=== PATIENT | male | born 1975 | race Caucasian/White ===

== ENCOUNTER 2025-09-10 17:11 | Emergency (ER) | payer BC, SELFPAY ==
--- NOTE | ~2025-09-10 | XR_ITS ---
EXAMINATION: XR hand RT min 3V, 09/10/2025 17:35 [facility] HISTORY: R hand laceration ATTN: 5TH DIGIT COMPARISON: No comparisons available. Findings: Evaluation is limited but there is a nondisplaced fracture suspected of the distal aspect intermediate phalanx fifth digit. No significant degenerative changes. Soft tissues unremarkable. Impression: Fifth Digit fracture Reviewed, dictated and finalized at location [facility] Impression: Fifth Digit fracture
--- NOTE | 2025-09-10 17:19 | ED_ITS ---
HPI - Wound/Laceration General Chief Complaint: Wound/Laceration <Talisha Meléndez APRN - Last Filed: 09/10/25 17:22> Stated Complaint: right hand lac today <Talisha eMléndez APRN - Last Filed: 09/10/25 17:22> Time Seen by Provider: 09/10/25 17:19 <Talisha Meléndez APRN - Last Filed: 09/10/25 17:22> Focused HPI: Patient is a 49-year-old male presents to to the ER after sustaining a laceration to his right hand. Reports he was hanging drywall when he grabbed a piece of sheet metal, it fell, and sliced his 3rd digit, 4th digit and 5th digit. He is unsure when he was last vaccinated for tetanus. Patient endorses a history of GERD but denies any other pertinent medical history. Patient's significant other reports patient has been drinking a fair amount of alcohol today. He denies any numbness and tingling, decreased range of motion, or uncontrolled bleeding. GENERAL: Well-appearing, well-nourished, and in no acute distress. HEAD: Normocephalic, atraumatic. CHEST: Clear to auscultation. ?No respiratory distress. HEART: Regular rate and rhythm.? NEURO: ?Alert and oriented x3. Patient screened in triage and initial orders placed.? ?Additional care and disposition to be based upon?diagnostic testing and treatment. <Talisha Meléndez APRN - Last Filed: 09/10/25 17:22> Focused HPI: Patient is a 49-year-old male presents to to the ER after sustaining a laceration to his right hand. Reports he was hanging drywall when he grabbed a piece of sheet metal, and fell, and sliced his 3rd digit, 4th digit and 5th digit. He is unsure when he was last vaccinated for tetanus. Patient endorses a history of GERD but denies any other pertinent medical history. Patient's significant other reports patient has been drinking a fair amount of alcohol today. He denies any numbness and tingling, decreased range of motion, or uncontrolled bleeding. Patient reports he had fallen about 15 feet from the ladder and landed on his back. He did not lose consciousness. GENERAL: Well-appearing, well-nourished, and in no acute distress. HEAD: Normocephalic, atraumatic. CHEST: Clear to auscultation. ?No respiratory distress. HEART: Regular rate and rhythm.? NEURO: ?Alert and oriented x3. Patient screened in triage and initial orders placed.? ?Additional care and disposition to be based upon?diagnostic testing and treatment. <Caitlin Roberson PA-C - Last Filed: 09/10/25 21:09> Related Data Allergies/Adverse Reactions: Allergies Allergy/AdvReac Type Severity Reaction Status Date / Time No Known Allergies Allergy Verified 09/10/25 17:12 <Talisha Meléndez APRN - Last Filed: 09/10/25 17:22> Review of Systems Review of Systems: All systems reviewed & are unremarkable except as noted in HPI and below <Caitlin Roberson PA-C - Last Filed: 09/10/25 21:09> PMFSH Past Medical History Medical History: Medical History (Updated 09/10/25 @ 21:08 by Caitlin Roberson PA-C) GERD (gastroesophageal reflux disease) <Talisha Meléndez, PHARMACEUTICAL OPERATOR - Last Filed: 09/10/25 17:22> Exam Narrative: GENERAL: Well-appearing, well-nourished, and in no acute distress. HEAD: Normocephalic, atraumatic. EYES: PERRLA and EOMI. ENT: Nares clear, no rhinorrhea or epistaxis. Mucous membranes moist. Oropharynx without tonsillar hypertrophy exudate or other lesions. Bilateral TMs pearly alegria non-bulging NECK: Supple. No adenopathy or masses. CHEST: Clear to auscultation. No respiratory distress. No wheezes rales or rhonchi HEART: Regular rate and rhythm. No murmur heard. Normal peripheral pulses. ABDOMEN: Soft, nontender, nondistended, normal active bowel sounds. EXTREMITIES: Normal range of motion, except decreased ROM in the right 4th and 5th fingers. No edema. SKIN: Warm, dry, no rash. NEURO: No focal deficits. Alert and oriented x3. CN II-XII grossly intact. Normal gait PSYCH: Normal mood and affect <Caitlin Roberson PA-C - Last Filed: 09/10/25 21:09> Course Vital Signs Vital signs: Vital Signs Temperature 97.6 F 09/10/25 17:29 Pulse Rate 90 09/10/25 17:29 Respiratory Rate 18 09/10/25 17:29 Blood Pressure 123/78 09/10/25 17:29 Pulse Oximetry 100 09/10/25 17:29 Oxygen Delivery Room Air 09/10/25 17:29 Temperature 97.6 F 09/10/25 17:29 Pulse Rate 90 09/10/25 17:29 Respiratory Rate 18 09/10/25 17:29 Blood Pressure 123/78 09/10/25 17:29 Pulse Oximetry 100 09/10/25 17:29 Oxygen Delivery Room Air 09/10/25 17:29 <Talisha Meléndez, PHARMACEUTICAL OPERATOR - Last Filed: 09/10/25 17:22> Vital Signs Temperature 97.6 F 09/10/25 17:29 Pulse Rate 90 09/10/25 17:29 Respiratory Rate 18 09/10/25 17:29 Blood Pressure 123/78 09/10/25 17:29 Pulse Oximetry 100 09/10/25 17:29 Oxygen Delivery Room Air 09/10/25 17:29 Temperature 97.6 F 09/10/25 17:29 Pulse Rate 90 09/10/25 17:29 Respiratory Rate 18 09/10/25 17:29 Blood Pressure 123/78 09/10/25 17:29 Pulse Oximetry 100 09/10/25 17:29 Oxygen Delivery Room Air 09/10/25 17:29 <Caitlin Roberson PA-C - Last Filed: 09/10/25 21:09> MDM - Wound/Laceration MDM Narrative Medical decision making narrative: Patient left against medical advice after medical screening exam and initial workup and before any further evaluation or management <AVA Blunt Last Filed: 09/10/25 21:09> Imaging Data Radiologist's impression: ITS Impressions Hand X-Ray 09/10/25 17:43 Impression: Fifth Digit fracture <AVA Blunt Last Filed: 09/10/25 21:09> Discharge Plan Discharge Clinical Impression: Laceration, Fall from height of greater than 3 feet Open finger fracture Qualifiers: Encounter type: initial encounter Finger: little finger Phalanx: middle Fracture alignment: nondisplaced Laterality: right Qualified Code(s): S62.656B - Nondisplaced fracture of middle phalanx of right little finger, initial encounter for open fracture <Talisha Meléndez APRN - Last Filed: 09/10/25 17:22> Patient Disposition: Left Against Medical Advice <Talisha Meléndez APRN - Last Filed: 09/10/25 17:22> Condition: Guarded Prognosis <Talisha Meléndez APRN - Last Filed: 09/10/25 17:22> Patient Language: Liberian <Talisha Meléndez APRN - Last Filed: 09/10/25 17:22> Follow-up/Referrals: PHYSICIAN NOT ON STAFF,NONSTAFF [Non-Staff] <Talisha Meléndez APRN - Last Filed: 09/10/25 17:22>
[2025-09-10 17:29] VITALS: BP 123/78; PULSE 90; RESP 18; TEMP 36.4; O2SAT 100
[2025-09-10] MEDS: TETANUS,DIPHTHERIA,AC PERTUSSIS ADULT (0.5 ML) BOOSTRIX IM (18:23)
== END 2025-09-10 19:49 | disposition left against medical advice (07) ==
PROVIDERS: Emergency Provider Physician Assistant
DX: S62.656B Nondisplaced fracture of middle phalanx of right little finger, initial encounter for open fracture (principal); Z23 Encounter for immunization; K21.9 Gastro-esophageal reflux disease without esophagitis; W26.8XXA Contact with other sharp object(s), not elsewhere classified, initial encounter; W11.XXXA Fall on and from ladder, initial encounter
CPT/HCPCS: 73130; 90471; 90715; 99283